=== PATIENT | female | born 1980 | race Caucasian/White ===

== ENCOUNTER 2016-04-24 22:53 | Emergency (ER) | payer OTHER ==
[~2016-04-24] VITALS: Ht 175.3 cm; Wt 98.7 kg
[~2016-04-24 22:53] MED LIST: PERCOCET 5/31 TABLET PO; REMICADE10 MG/ML IV; ROXICODONE5 MG PO; SYNTHROID50 MCG PO; VIIBRYD10 MG PO; ZOFRAN8 MG PO; ZOLOFT50 MG PO
[2016-04-24 23:05] VITALS: BP 130/98
== END 2016-04-25 01:20 | disposition left against medical advice (07) ==
LOC: EME 22:53
DX: R10.84 Generalized abdominal pain (principal); R11.2 Nausea with vomiting, unspecified; Z53.21 Procedure and treatment not carried out due to patient leaving prior to being seen by health care provider
CPT/HCPCS: 80053; 81003; 83690; 84702; 85027

== ENCOUNTER 2016-05-04 20:47 | Emergency (ER) | payer OTHER ==
[~2016-05-04] VITALS: Ht 175.3 cm; Wt 99.8 kg
[2016-05-04 21:30] LABS: HEMATOCRIT 33.3 % (36.0-46.0); MCH 24.9 PG (29.0-34.0); MCHC 31.2 G/DL (30.0-36.0); MCV 79.7 FL (83-99); MEAN PLAT.VOLUME 8.4 uM^3 (9.5-12.4); PLATELET COUNT 403 K/uL (156-360); RBC DIS.WIDTH-CV 14.9 % (11.8-14.6); RBC DIS.WIDTH-SD 42.8 % (39-53); RED BLOOD COUNT 4.18 M/uL (3.80-5.20); WHITE BLOOD COUNT 7.8 K/uL (4.1-10.2)
[2016-05-04 21:37] LABS: CHLORIDE 106 mEq/L (99-109)
[2016-05-04 21:38] LABS: POTASSIUM 4.3 mEq/L (3.7-5.4); SODIUM 139 mEq/L (136-147)
[2016-05-04 21:40] LABS: GLUCOSE 144 mg/dL (70-99)
[2016-05-04 21:41] LABS: ANION GAP 12 MEQ/L (2-14)
[2016-05-04 21:42] LABS: TOTAL BILIRUBIN 0.4 mg/dL (0.0-1.0)
[2016-05-04 21:43] LABS: ALKALINE PHOSPHATASE 89 IU/L (3-129); GFR ESTIMATE (CALCULATED) > 59 mL/min/
[2016-05-04 21:45] LABS: UREA NITROGEN (BUN) 13 mg/dL (9-23)
[2016-05-04] MEDS ORDERED: ZOFRAN4 MG PO (21:45)
[2016-05-04] MEDS ORDERED: REMICADE10 MG/ML IV (21:45)
[2016-05-04] MEDS ORDERED: ATIVAN1 MG PO (21:46)
[2016-05-04] MEDS ORDERED: DAILY VITE1 EAC1 PO (21:46)
[2016-05-04] MEDS ORDERED: AMBIEN5 MG PO (21:46)
[2016-05-04] MEDS ORDERED: SYNTHROID50 MCG PO (21:47)
[2016-05-04 21:53] LABS: QUANTITATIVE HCG < 4.0 MIU/ML
[2016-05-04 23:01] LABS: PROTHROMBIN TIME 10.1 (9.2-11.2); PTT 27.8 (25-32)
[2016-05-05 00:23] LABS: ADD MIUA? NO; BILIRUBIN NEGATIVE; BLOOD NEGATIVE; COLOR YELLOW ((YELLOW)); GLUCOSE (STRIP) NEGATIVE; KETONES NEGATIVE; LEUKOCYTES NEGATIVE; NITRITE NEGATIVE; PROTEIN (STRIP) NEGATIVE; SPECIFIC GRAVITY 1.019 (1.000-1.030); UCUL ADDED? NO; UROBILINOGEN 0.2 MG/DL (0.2-1.0)
[2016-05-05 01:04] VITALS: BP 133/92
== END 2016-05-05 01:40 | disposition home or self-care (01) ==
LOC: EME 20:47
PROVIDERS: Emergency Medicine
DX: R10.31 Right lower quadrant pain (principal); K50.90 Crohn's disease, unspecified, without complications; E03.9 Hypothyroidism, unspecified; Z88.6 Allergy status to analgesic agent
CPT/HCPCS: 74177; 80053; 81003; 84702; 85027; 85610; 85730; 86850; 86900; 86901; 99281; 99285; J1170; J1200; J2405; J7030